=== PATIENT | male | born 1990 ===

== ENCOUNTER 2019-02-24 15:33 | Outpatient (CLI) | payer BC ==
[~2019-02-24] VITALS: Ht 165.1 cm; Wt 70.3 kg
== END 2019-02-24 15:45 | disposition home or self-care (01) ==
LOC: OFIC 805 15:33
DX: J03.80 Acute tonsillitis due to other specified organisms (principal)

== ENCOUNTER 2019-02-24 17:07 | Outpatient (CLI) | payer BC | END 2019-02-24 17:20 | disposition home or self-care (01) | LOC: LAB 17:07 | DX: J03.90 Acute tonsillitis, unspecified (principal) ==

== ENCOUNTER 2019-03-03 16:10 | Outpatient (CLI) | payer BC ==
[~2019-03-03] VITALS: Ht 152.4 cm; Wt 70.3 kg
== END 2019-03-03 16:25 | disposition home or self-care (01) ==
LOC: OFIC 805 16:10
DX: J03.80 Acute tonsillitis due to other specified organisms (principal); H61.23 Impacted cerumen, bilateral